=== PATIENT | male | born 1955 | race Caucasian/White ===

== ENCOUNTER 2017-09-07 18:43 | Emergency (ER) | payer MEDICAID ==
--- NOTE | 2017-09-07 20:03 | EDM.PDOC ---
ED HPI GENERAL MEDICAL PROBLEM - General Chief Complaint: Lower Extremity Injury/Pain Stated Complaint: FELL AND HURT HIP Time Seen by Provider: 09/07/17 20:00 Source of Information: Reports: Patient History Limitations: Reports: No Limitations - History of Present Illness INITIAL COMMENTS - FREE TEXT/NARRATIVE: Trent is an otherwise healthy 62-year-old male who presents to the emergency Department today with complaints of right hip pain. Patient reports he was cleaning the floor at his cabin when he twisted and felt like his right hip popped out and went back in. Patient did fall but did not land on his hip. Since this time patient reports pain with ambulation, rating it a 4 out of 10. Patient did take ibuprofen prior to arrival here which did help his pain minimally. At rest he rates his pain a 2 out of 10. Patient denies any prior injury to this hip or any other injuries today. Onset: Today, Sudden right hip Pain Score (Numeric/FACES): 2 - Related Data Allergies Allergy/AdvReac Type Severity Reaction Status Date / Time No Known Allergies Allergy Verified 09/07/17 19:42 Home Meds: Home Meds NK [No Known Home Meds] 09/07/17 [History] Past Medical History HEENT History: Reports: Impaired Vision Gastrointestinal History: Reports: GERD, Irritable Bowel Syndrome Musculoskeletal History: Reports: Fracture, Other (See Below) Other Musculoskeletal History: right great toe fracture Psychiatric History: Reports: Dementia - Infectious Disease History Infectious Disease History: Reports: Chicken Pox, Mumps - Past Surgical History HEENT Surgical History: Reports: Adenoidectomy, LASIK, Oral Surgery, Tonsillectomy Social & Family History - Tobacco Use Smoking Status *Q: Never Smoker - Caffeine Use Caffeine Use: Reports: Coffee - Recreational Drug Use Recreational Drug Use: No Review of Systems - Review of Systems Review Of Systems: ROS reveals no pertinent complaints other than HPI. ED EXAM, GENERAL - Physical Exam Exam: See Below Exam Limited By: No Limitations General Appearance: Alert, WD/WN, No Apparent Distress Respiratory/Chest: No Respiratory Distress Cardiovascular: Normal Peripheral Pulses, Regular Rate, Rhythm Back Exam: Normal Inspection Extremities: Normal Inspection, Normal Range of Motion, Other (Tenderness to deep palpation noted to right hip along area of greater trochanter, no pain with leg raise, capillary refill, distal and proximal pulses are intact, sensation is intact, strength is 5 out of 5.) Neurological: Alert, Oriented, CN II-XII Intact Psychiatric: Normal Affect, Normal Mood Skin Exam: Warm, Dry, Intact Lymphatic: No Adenopathy Course - Vital Signs Last Recorded V/S: Last Vital Signs Temp 36.1 C 09/07/17 19:51 Pulse 57 L 09/07/17 19:51 Resp 16 09/07/17 19:51 BP 142/82 H 09/07/17 19:51 Pulse Ox 100 09/07/17 19:51 Trent is an otherwise healthy 62-year-old male who presents to the emergency department today with complaints of right hip pain after she twisted while working on a floor felt a popping sensation in that his hip possibly dislocated and then went back into place. Patient has had mild pain with ambulation since that time. Patient denies any actual trauma or landing on his hip. Patient has no obvious findings on exam, he is tender to deep palpation just above his greater trochanter. CMS is intact and pelvic rock does not cause any discomfort. X-ray was obtained to rule out any bony abnormalities and is negative on my review. I discussed with patient that he likely stained a mild subluxation/dislocation of his right hip that is now in good position. As a result of which patient likely has a ligamentous strain. I did recommend a scheduled ibuprofen, ice/heat to hip for the next several days. I did discuss with patient that if his symptoms do not start to improve over the next few days I would recommend follow-up with primary care as an outpatient MRI at that time may be warranted. The patient continues to have symptoms he may benefit from physical therapy involvement as well. Reasons to return to the emergency department were discussed in detail, patient and his are agreeable with plan of care patient was discharged in stable condition. - Orders/Labs/Meds Orders: Active Orders 24 hr Category Date Time Status Hip Min 2V or 3V w Pelvis Rt [CR] Stat Exams 09/07/17 19:57 Taken Departure - Departure Time of Disposition: 21:00 Disposition: Home, Self-Care 01 Condition: Good Clinical Impression: Sprain of right hip Qualifiers: Encounter type: initial encounter Qualified Code(s): S73.101A - Unspecified sprain of right hip, initial encounter - Discharge Information Instructions: Hip Pain Referrals: PCP,None [Primary Care Provider] - Forms: ED Department Discharge Additional Instructions: Newman, You have likely sustained a mild hip subluxation that has corrected itself. This likely has caused a ligamentous strain. I would recommend taking it easy for the next few days and taking ibuprofen 600 mg every 6 hours for the next 3- 5 days for pain and inflammation. You can apply ice/heat to area of pain as well. Your x-ray today is reassuring. I would recommend that if your symptoms are not improving in the next few days that you follow up with your primary care provider for further evaluation. It was nice meeting you and I hope you feel better soon. - My Orders Last 24 Hours: My Active Orders 09/07/17 19:57 Hip Min 2V or 3V w Pelvis Rt [CR] Stat - Assessment/Plan Last 24 Hours: My Active Orders 09/07/17 19:57 Hip Min 2V or 3V w Pelvis Rt [CR] Stat
--- NOTE | 2017-09-10 09:27 | CR ---
Pelvis right hip There is normal alignment. There is no evidence of fracture. The soft tissues are unremarkable. Impression: 1. No acute findings.
== END 2017-09-07 21:00 | disposition home or self-care (01) ==
LOC: JP.ED 18:43
DX: S73.101A Unspecified sprain of right hip, initial encounter (principal); X50.1XXA Overexertion from prolonged static or awkward postures, initial encounter
CPT/HCPCS: 73502-26-RT; 73502-RT; 99283; 99284